=== PATIENT | female | born 1995 | race Two or more races ===

== ENCOUNTER → 2018-09-13 | Emergency (ER) | payer OTHER ==
[~2018-09-13] VITALS: Ht 157.5 cm; Wt 59.0 kg
[~2018-09-13] MED LIST: LEVSIN/SL0.125 MG SL; NITROFURANTOIN100 MG; PEPCID40 MG; PEPCID40 MG PO; PHENERGAN25 MG PO; VALACYCLOVIR1000 MG; ZOFRAN ODT4 MG PO
== END | disposition home or self-care (01) ==
LOC: ER 18:47
DX: K52.89 Other specified noninfective gastroenteritis and colitis (principal)

== ENCOUNTER 2024-04-04 07:11 | Outpatient (CLI) | payer OTHER | END 2024-04-04 07:21 | disposition home or self-care (01) | LOC: PPH VACUNA 07:11 | PROVIDERS: ATTEND Emergency Medicine Pediatric Emergency Medicine | DX: Z23 Encounter for immunization (principal) ==